=== PATIENT | male | born 1945 | race Caucasian/White ===

== ENCOUNTER → 2017-09-27 | Outpatient (CLI) | payer OTHER ==
[2015-03-10 09:55] VITALS: BP 136/78
--- NOTE | 2017-09-27 12:58 | VAS ---
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 The vertebral arterial system was evaluated as well. Findings: The peak systolic velocity of the right ICA is 61 cm/sec. The peak systolic velocity of the left ICA is 76 cm/sec. The ICA/CCA ratio on the right is 1.1. The ICA/CCA ratio on the left is 0.9. Bilateral antegrade vertebral flow was noted. IMPRESSION: 1. No hemodynamically significant stenosis is appreciated. Reported By:
== END ==
LOC: RAD 11:03
PROVIDERS: ATTEND Ophthalmology
DX: H34.231 Retinal artery branch occlusion, right eye (principal)
CPT/HCPCS: 93880